=== PATIENT | male | born 1995 | race Caucasian/White ===

== ENCOUNTER 2017-04-09 21:00 | Emergency (ER) | payer SELFPAY ==
[~2017-04-09] VITALS: Ht 172.7 cm; Wt 105.0 kg
[~2017-04-09 21:00] MED LIST: CEPHALEXIN500 MG PO; NO HOME MEDS; ULTRAM50 M1 PO
[2017-04-09 23:18] VITALS: BP 155/80
== END 2017-04-09 23:22 | disposition home or self-care (01) | DRG 556 ==
LOC: ED 21:00
DX: M25.511 Pain in right shoulder (principal); M54.2 Cervicalgia; V86.55XA Driver of 3- or 4- wheeled all-terrain vehicle (ATV) injured in nontraffic accident, initial encounter

== ENCOUNTER 2018-06-27 16:49 | Emergency (ER) | payer SELFPAY ==
[~2018-06-27] VITALS: Ht 172.7 cm; Wt 80.0 kg
[2018-06-27 18:30] VITALS: BP 139/78
== END 2018-06-27 18:30 | disposition home or self-care (01) | DRG 866 ==
LOC: ED 16:49
DX: B34.9 Viral infection, unspecified (principal); R05 Cough; R09.81 Nasal congestion

== ENCOUNTER 2019-06-13 | Emergency (ER) | payer SELFPAY ==
[2019-06-13] MEDS ORDERED: AMOXICILLIN875 MG PO (18:37)
== END 2019-06-13 19:00 | disposition home or self-care (01) | DRG 153 ==
DX: J02.9 Acute pharyngitis, unspecified (principal)

== ENCOUNTER 2020-06-09 | Emergency (ER) | payer SELFPAY ==
[~2020-06-09] MED LIST changes: +AMOXICILLIN875 MG PO
[2020-06-09] MEDS ORDERED: TESSALON PERLE100 MG PO (14:44)
== END 2020-06-09 14:50 | disposition home or self-care (01) | DRG 866 ==
DX: B34.9 Viral infection, unspecified (principal); Z20.822 Contact with and (suspected) exposure to COVID-19

== ENCOUNTER 2021-05-13 15:52 | Emergency (ER) | payer SELFPAY ==
[~2021-05-13] VITALS: Ht 172.7 cm; Wt 80.0 kg
[~2021-05-13 15:52] MED LIST changes: +TESSALON PERLE100 MG PO
[2021-05-13 17:40] VITALS: BP 147/86
== END 2021-05-13 17:40 | disposition home or self-care (01) | DRG 556 ==
LOC: ED 15:52
DX: M79.671 Pain in right foot (principal)

== ENCOUNTER 2021-07-03 11:11 | Emergency (ER) | payer BC ==
[~2021-07-03] VITALS: Ht 172.7 cm; Wt 90.0 kg
[2021-07-03 11:22] VITALS: BP 121/72
[2021-07-03 12:00] VITALS: BP 107/61
[2021-07-03] MEDS ORDERED: ONDANSETRON4 MG PO (13:00)
[2021-07-03] MEDS ORDERED: MECLIZINE25 MG PO (13:00)
[2021-07-03 13:22] VITALS: BP 107/61
== END 2021-07-03 13:30 | disposition home or self-care (01) | DRG 179 ==
LOC: ED 11:11
DX: U07.1 COVID-19 (principal); R50.9 Fever, unspecified; R52 Pain, unspecified; R05.9 Cough, unspecified; R09.81 Nasal congestion; R11.0 Nausea; R42 Dizziness and giddiness

== ENCOUNTER 2021-08-25 16:19 | Emergency (ER) | payer BC ==
[2021-08-25] VITALS (9 sets, daily range): BP systolic 116–167; BP diastolic 65–96
[~2021-08-25] VITALS: Ht 172.7 cm; Wt 86.3 kg
[~2021-08-25 16:19] MED LIST changes: +MECLIZINE25 MG PO; +ONDANSETRON4 MG PO
[2021-08-25 17:22] LABS: HEMATOCRIT 42.4 % (39.0-50.0); HEMOGLOBIN 14.1 g/dl (14.0-18.0); IMMATURE GRANULOCYTES 0.1 % (0.0-5.0); MEAN CORPUSCULAR HGB 29.7 pG CALC (26.0-32.0); MEAN CORPUSCULAR HGB CONC 33.3 g/dL CAL (32.0-36.0); NEUT# 12.46 thou/uL (1.82-7.42); RED BLOOD COUNT 4.75 mill/uL (4.70-6.10); RED CELL DISTRI WIDTH 12.9 % (11.5-15.5)
[2021-08-25 17:25] LABS: MEAN CELL VOLUME 89.3 fL CALC (80.0-100.0)
[2021-08-25 17:48] LABS: ALBUMIN 4.6 g/dL (3.2-5.0); ANION GAP 11 (6-22 (CALC)); BUN 14 mg/dL (9-20); BUN/CREATININE RATIO 19 (12-20 (CALC)); CARBON DIOXIDE 25 mmol/l (22-30); CHLORIDE 105 mmol/l (95-108); CREATININE 0.7 mg/dL (0.7-1.3); ETHYL ALCOHOL 0 mg/dl (0-30); GFR FOR AFR.AMER. > 60 ML/MIN (>=60 (CALC)); GFR OTHER RACES > 60 ML/MIN (>=60 (CALC)); LIPASE 95 u/l (23-300); POTASSIUM 3.9 mmol/l (3.5-5.1); SGOT/AST 30 u/l (17-59); SODIUM 137 mmol/l (137-146)
[2021-08-25 17:49] LABS: ALKALINE PHOSPHATASE 61 u/l (38-126); BILIRUBIN, TOTAL 0.6 mg/dL (0.0-1.4); TOTAL PROTEIN 7.4 g/dL (6.3-8.2)
[2021-08-25 18:26] LABS: URINE BILIRUBIN - DIPSTICK NEGATIVE (NEGATIVE); URINE BLOOD DIPSTICK NEGATIVE (NEGATIVE); URINE COLOR YELLOW; URINE GLUCOSE - DIPSTICK NEGATIVE (NEGATIVE); URINE KETONE NEGATIVE (NEGATIVE); URINE LEUK ESTERASE NEGATIVE (NEGATIVE); URINE PH 8.5 (4.5-8.0); URINE PROTEIN - DIPSTICK 100 mg/dL (NEG-TRACE); URINE UROBILINOGEN - DIPSTICK 0.2 E.U./dL (0.2)
[2021-08-25 18:28] LABS: URINE NITRITE - DIPSTICK NEGATIVE (Negative)
[2021-08-25 18:32] LABS: URINE AMORPH SEDIMENT MANY hpf (NONE-FER); URINE RBC 0-2 RBC/hpf (0-5); URINE WBC 0-2 WBC/hpf (0-5)
[2021-08-25] MEDS ORDERED: PROMETHAZINE HY25 M1 PO (19:07)
== END 2021-08-25 19:15 | disposition home or self-care (01) | DRG 392 ==
LOC: ED 16:19
PROVIDERS: Family Medicine
DX: K52.9 Noninfective gastroenteritis and colitis, unspecified (principal); F17.200 Nicotine dependence, unspecified, uncomplicated
CPT/HCPCS: Q9967

== ENCOUNTER 2021-08-26 21:51 | Emergency (ER) | payer BC ==
[~2021-08-26] VITALS: Ht 172.7 cm; Wt 86.0 kg
[~2021-08-26 21:51] MED LIST changes: +PROMETHAZINE HY25 M1 PO
[2021-08-26 22:16] VITALS: BP 132/77
[2021-08-26 22:30] VITALS: BP 144/78
[2021-08-26 22:54] LABS: URINE BILIRUBIN - DIPSTICK NEGATIVE (NEGATIVE); URINE BLOOD DIPSTICK NEGATIVE (NEGATIVE); URINE COLOR YELLOW; URINE GLUCOSE - DIPSTICK NEGATIVE (NEGATIVE); URINE KETONE 15 mg/dL (NEGATIVE); URINE LEUK ESTERASE NEGATIVE (NEGATIVE); URINE PH 8.5 (4.5-8.0); URINE PROTEIN - DIPSTICK NEGATIVE (NEG-TRACE); URINE UROBILINOGEN - DIPSTICK 0.2 E.U./dL (0.2)
[2021-08-26 22:55] LABS: HEMATOCRIT 45.5 % (39.0-50.0); HEMOGLOBIN 15.3 g/dl (14.0-18.0); IMMATURE GRANULOCYTES 0.1 % (0.0-5.0); MEAN CELL VOLUME 89.2 fL CALC (80.0-100.0); MEAN CORPUSCULAR HGB CONC 33.6 g/dL CAL (32.0-36.0); NEUT# 9.82 thou/uL (1.82-7.42); RED BLOOD COUNT 5.1 mill/uL (4.70-6.10); RED CELL DISTRI WIDTH 12.9 % (11.5-15.5)
[2021-08-26 22:56] LABS: URINE NITRITE - DIPSTICK NEGATIVE (Negative)
[2021-08-26 23:07] LABS: ALBUMIN 4.9 g/dL (3.2-5.0); ALKALINE PHOSPHATASE 61 u/l (38-126); AMYLASE 106 u/l (30-110); ANION GAP 16 (6-22 (CALC)); BILIRUBIN, TOTAL 0.8 mg/dL (0.0-1.4); BUN 16 mg/dL (9-20); BUN/CREATININE RATIO 17 (12-20 (CALC)); CARBON DIOXIDE 25 mmol/l (22-30); CHLORIDE 102 mmol/l (95-108); GFR FOR AFR.AMER. > 60 ML/MIN (>=60 (CALC)); GFR OTHER RACES > 60 ML/MIN (>=60 (CALC)); LIPASE 103 u/l (23-300); POTASSIUM 4.2 mmol/l (3.5-5.1); SGOT/AST 28 u/l (17-59); SODIUM 139 mmol/l (137-146); TOTAL PROTEIN 7.9 g/dL (6.3-8.2)
[2021-08-27] MEDS ORDERED: ONDANSETRON4 MG PO (01:11)
[2021-08-27] MEDS ORDERED: BACTRIM DS1 TAB PO (01:11)
[2021-08-27 01:36] VITALS: BP 144/78
== END 2021-08-27 01:46 | disposition home or self-care (01) | DRG 392 ==
LOC: ED 21:51
PROVIDERS: Emergency Medicine
DX: K52.9 Noninfective gastroenteritis and colitis, unspecified (principal); Z91.128 Patient's intentional underdosing of medication regimen for other reason; Z20.822 Contact with and (suspected) exposure to COVID-19

== ENCOUNTER 2022-06-03 12:08 | Emergency (ER) | payer BC ==
[2022-06-03] VITALS (10 sets, daily range): BP systolic 28–128; BP diastolic 14–83
[~2022-06-03] VITALS: Ht 172.7 cm; Wt 83.9 kg
[~2022-06-03 12:08] MED LIST changes: +BACTRIM DS1 TAB PO
[2022-06-03] MEDS ORDERED: NAPROXEN500 MG PO (13:55)
== END 2022-06-03 14:12 | disposition home or self-care (01) | DRG 86 ==
LOC: ED 12:08
DX: S02.19XA Other fracture of base of skull, initial encounter for closed fracture (principal); T79.7XXA Traumatic subcutaneous emphysema, initial encounter; F17.200 Nicotine dependence, unspecified, uncomplicated; Y04.2XXA Assault by strike against or bumped into by another person, initial encounter